=== PATIENT | male | born 1980 | race Caucasian/White ===

== ENCOUNTER 2020-05-10 21:16 | Emergency (ER) | payer BC ==
[2020-05-10 21:21] VITALS: BP 109/75; PULSE 92; RESP 18; TEMP 98.4
[2020-05-10] MEDS ORDERED: KETOROLAC 15 MG/ML 1 ML VIAL IM STA (21:38)
--- NOTE | 2020-05-10 21:52 | XR ---
EXAMINATION TYPE: XR knee complete LT DATE OF EXAM: 05/10/2020 CLINICAL HISTORY: pain TECHNIQUE: Three views of the left knee are obtained. COMPARISON: None. FINDINGS: There is no acute fracture/dislocation. The tri-compartment joint spaces appear within no rmal limits. The overlying soft tissue appears unremarkable. IMPRESSION: There is no acute fracture or dislocation ICD 10 NO FRACTURE, INITIAL EVALUATION
--- NOTE | 2020-05-10 21:53 | XR ---
EXAMINATION TYPE: XR tibia fibula LT DATE OF EXAM: 05/10/2020 CLINICAL HISTORY: pain TECHNIQUE: AP and lateral images of the left tibia and fibula are obtained. COMPARISON: None. FINDINGS: There is no acute fracture/dislocation evident. The joint spaces appear within normal [place] its. The overlying soft tissue appears unremarkable. IMPRESSION: There is no acute fracture or dislocation seen. ICD 10 NO FRACTURE, INITIAL EVALUATION
--- NOTE | 2020-05-10 22:04 | ED ---
Lower Extremity Injury HPI - General Chief Complaint: Extremity Injury, Lower Stated Complaint: L Leg Injury Time Seen by Provider: 05/10/20 21:22 Source: patient Mode of arrival: wheelchair Limitations: no limitations - History of Present Illness Initial Comments: 40yo male prsenting for left knee pain. Patient states that he came down on his left leg and the pressure caused him to fall forward. He states that he felt pain along the medical aspect of his knee that radiated towards his beard. Denies dislocation. Denies previosu injury. Denies posterior pain, ankle or hip pain Denies back pain. Denies falling hitting head or neck. Patient denies numbness tingling or loss of sensation: Circumcised extremity. Patient is no additional complaints - Related Data Home Medications Medication Instructions Recorded Confirmed Finasteride 1 mg PO DAILY 01/19/15 01/19/15 Losartan [Cozaar] 25 mg PO DAILY 01/19/15 01/19/15 Previous Rx's Medication Instructions Recorded Hydrocodone/Acetaminophen [[place] 1 each PO Q6HR PRN #20 tab 01/19/15 5-325] Ibuprofen [Motrin] 800 mg PO Q6HR PRN #30 tab 01/19/15 Ondansetron Odt [Zofran ODT] 4 mg PO Q8HR PRN #15 tab 01/19/15 Tamsulosin [Flomax] 0.4 mg PO DAILY #3 cap 01/19/15 Allergies Allergy/AdvReac Type Severity Reaction Status Date / Time No Known Allergies Allergy Verified 05/10/20 21:20 Review of Systems ROS Statement: Those systems with pertinent positive or pertinent negative responses have been documented in the HPI. ROS Other: All systems not noted in ROS Statement are negative. Past Medical History Past Medical History: Asthma, Hypertension History of Any Multi-Drug Resistant Organisms: None Reported Past Surgical History: No Surgical Hx Reported Additional Past Surgical History / Comment(s): kidney stones Past Psychological History: No Psychological Hx Reported Smoking Status: Never smoker Past Alcohol Use History: Occasional Past Drug Use History: None Reported General Exam - General Exam Comments Initial Comments: General: The patient is awake and alert, in no distress, and does not appear acutely ill. Eye: Pupils are equal, round and reactive to light, extra-ocular movements are intact. No nystagmus. There is normal conjunctiva bilaterally. No signs of icterus. Cardiovascular: There is a regular rate and rhythm. No murmur, rub or gallop is appreciated. Respiratory: Lungs are clear to auscultation, respirations are non-labored, breath sounds are equal. No wheezes, stridor, rales, or rhonchi. Musculoskeletal: Normal inspection of the lower extremity bilaterally no swelling or gross deformities. Patient is tenderness to patient the medial aspect of the left knee. As well as the anterior left beard. No posterior pain. Physician to approximate distal to injury site. Normal range of motion of the knee extensor mechanism intact patient does admit to some discomfort with range of motion. No laxity appreciated. Strength 5/5. DP pulses equal bilaterally 2+. Neurological: A&O x 3. CN II-XII intact, There are no obvious motor or sensory deficits. Coordination appears grossly intact. Speech is normal. Skin: Skin is warm and dry and no rashes or lesions are noted. Psychiatric: Cooperative, appropriate mood & affect, normal judgment. Limitations: no limitations Course Vital Signs 05/10/20 21:17 Temperature 98.4 F Pulse Rate 92 Respiratory 18 Rate Blood Pressure 109/75 O2 Sat by Pulse 99 Oximetry Medical Decision Making - Medical Decision Making XR (-) for fracture. Pt is neurovascular intact extensor mechanism intact. Patient placed in knee immobilizer to be used for ambulation. Cannot r/o ligamentous injury and recommend PCP f/u and orthopedic f/u. Disposition Clinical Impression: Left knee pain, Strain of left knee Disposition: HOME SELF-CARE Condition: Good Instructions (If sedation given, give patient instructions): Knee Sprain (ED) Additional Instructions: Please use medication as discussed. Please follow-up with family doctor in the next 2 days, if symptoms persist for next 5 days please follow-up with orthopedic surgery, use knee immobilizer during ambulation, crutches as needed for comfort. Please return to emergency room if the symptoms increase or worsen or for any other concerns. Is patient prescribed a controlled substance at d/c from ED?: No Referrals: Luis Martinez MD [Primary Care Provider] - 1-2 days Calvin Wayne MD [STAFF PHYSICIAN] - 1-2 days
== END 2020-05-10 22:28 | disposition home or self-care (01) ==
LOC: EC 21:16
DX: S86.912A Strain of unspecified muscle(s) and tendon(s) at lower leg level, left leg, initial encounter (principal); I10 Essential (primary) hypertension; Z79.899 Other long term (current) drug therapy; W19.XXXA Unspecified fall, initial encounter
CPT/HCPCS: 73590; 73562; 99283; 96372; L1830; J1885